=== PATIENT | female | born 1990 | race Caucasian/White ===

== ENCOUNTER 2017-01-13 08:25 | Inpatient (IN) ==
[~2017-01-13 08:25] MED LIST: Famotidine 20 MG/2 ML VIAL IVP PRN; Naloxone 0.4 MG/ML INJ IVP PRN; Ondansetron 4 MG/2 ML VIAL IVP PRN; Ringers Solution, Lactated 1,000 ML ONE
[2017-01-13] MEDS ORDERED: D5% in Lactated Ringers 1,000 ML IVC SCH (08:30)
--- NOTE | 2017-01-13 08:32 | OB/GYN History & Physical ---
Date of Encounter: 01/13/17 Time of Encounter: 08:29 Assessment and Plan (1) 38 weeks gestation of Current visit: Yes Status: Acute The patient has been receiving care and meeting milestones (2) Spontaneous onset of labor Current visit: Yes Status: Acute Anticipate vaginal delivery. Pain management as requested (3) Obesity complicating , childbirth, or puerperium, antepartum Current visit: Yes Status: Acute The patient has had normal glucose monitoring and reassuring ultrasounds (4) Anemia complicating Current visit: Yes Status: Acute The patient has been receiving iron since her second trimester Qualifiers: Trimester: unspecified trimester Qualified Code(s): O99.019 - Anemia complicating , unspecified trimester History of Present Illness Chief complaint: In Labor HPI: Ms. Murphy is a 26 year old female who is with an EDC of 01/21/17 by LMP and ultrasound who presents to labor and delivery with worsening contractions but denies vaginal bleeding or loss of fluid. She reports an active fetus. She has been monitored on labor and delivery and has change from 4 cm to 6 cm. Her contractions are spontaneous and currently every 5-6 minutes. Her blood type is A+, she is rubella immune, varicella immune and her group B strep status is negative. Her has been complicated by history of a spontaneous during first trimester, anemia and obesity. Past Med Surg Social Fam HX - Past Medical History Source: patient, old records reviewed Medical history: no medical history Psychiatric history: no psych history - Past Surgical History Surgical History: no surgical history - Social History Smoking Status: Never smoker Smokeless Tobacco Status: No Alcohol use: none Drug use: unknown - Family History Mother Living Status: Still Living Hx Family Cardiac Disorders: Yes (HTN) Obstetrical History - Pregnancies : 2 Para: 0 Ab's: 1 Medications and Allergies 3 Allergy/AdvReac Type Severity Reaction Status Date / Time No Known Allergies Allergy Verified 09/19/15 20:30 Review of System OB All systems PM: reviewed and no additional remarkable complaints except as stated - Cardiovascular Cardiovascular: pedal edema - Gastrointestinal Gastrointestinal: cramping - Muscloskeletal Musculoskeletal: back pain, muscle cramps Exam - Vital Signs Vital signs: Afebrile, vital signs stable - Constitutional Constitutional: well developed, well nourished, no acute distress, obese - HEENT HEENT: Normocephaly, Mucus Membranes Moist - Neck Neck exam: normal inspection, supple - Lungs Respiratory exam: CTAB - Cardiovascular Cardiovascular exam: RRR - Breasts Breast: bilateral: normal - Abdomen Abdomen: Present: bowel sounds normal, gravid, non tender - Extremities Extremities exam: pedal edema, warm Deep Tendon Reflex Grade: 3+ Normal But Brisk - Vulva Vulva: bilateral: normal - Vagina Vagina: Present: normal moisture - Cervix Dilation: 6 Effacement: 90 Station: +1 - Anus/Rectum Anus/Rectum: Present: normal perianal skin Results All other labs normal. - VTE Reasons for not Prescribing Prophylaxis: Treatment not Indicated - Low risk for VTE
[2017-01-13 08:55] LABS: Basophils % 0.2 %; Eosinophils % 0.1 %; Hematocrit 33.7 % (35.3-44.9); Hemoglobin 11.1 g/dL (11.5-15.4); Immature Granulocytes % 0.6 % (0-4); Lymphocytes # 2.1 K/mcL (0.6-4.6); Lymphocytes % 13.4 %; Mean Corpuscular HGB Conc 32.9 g/dL (31.6-35.5); Mean Corpuscular Hemoglobin 29.4 pg (28.0-33.3); Mean Corpuscular Volume 89.2 fL (83.0-100.0); Mean Platelet Volume 10.3 fL (9.4-12.4); Monocytes # 0.6 K/mcL (0.0-1.3); Monocytes % 4.1 %; Neutrophils # 12.5 K/mcL (1.6-8.9); Platelet Count 313 K/mcL (140-400); Red Blood Count 3.78 M/mcL (3.82-4.97); Red Cell Distribution Width 13.7 % (11.5-14.5); Segmented Neutrophils % 81.6 %
[2017-01-13] MEDS ORDERED: *HR* FentaNYL (PF) 100 MCG/2 ML VIAL EP ONE (09:29)
[2017-01-13] MEDS ORDERED: EPHEDrine 50 MG/ML VIAL IVP PRN (09:29)
[2017-01-13] MEDS ORDERED: Ringers Solution, Lactated 500 ML IVC ONE (09:29)
[2017-01-13] MEDS ORDERED: *HR* Ropivacaine/PF 0.2% 10 ML AMPUL EP ONE (09:29)
[2017-01-13] MEDS ORDERED: Epidural Premix (fent/bupiv) 110 ML EP SCH (09:30)
--- NOTE | 2017-01-13 09:39 | Anesthesia Evaluation PreOp ---
Date of Encounter: 01/13/17 Time of Encounter: 09:35 - Past History Planned Operation: ARCHIE Cardiac History: Denies any Significant Hx Pulmonary History: Denies Any Significant HX GLASS BEVELLER History: Denies Any Significant HX Other Medical History: Denies Any Significant HX Anesthesia History: No Prior Anesthetic Complications, Past Anesthesia (Finger Surgery) : Yes Alcohol Use: none Drug use: unknown Medications and Allergies 3 Allergy/AdvReac Type Severity Reaction Status Date / Time No Known Allergies Allergy Verified 09/19/15 20:30 - Meds/Allergy Pre-op Review Medications Reviewed: Yes Allergies Reviewed: Yes Beta Blockers on Current Med List: No Anesthesia Results - Labs 01/13/17 08:30 Anesthesia Exam Height: 1.63m Weight: 96.2kg NPO (# of Hours): >4hr Pain Scale: 6 Pain Scale Used: Numeric (1 - 10) - HEENT Pupil (Motor): Pupils equal Mallampati: II Teeth: Normal Oral Opening: Greater than 3 - GLASS BEVELLER LOC: Oriented GLASS BEVELLER Motor: Normal RUE, Normal LUE, Normal RLE, Normal LLE, Normal Face GLASS BEVELLER Sensory: Normal: RUE, LUE, RLE, LLE, Face - Cardiac Rhythm: Regular Murmur: None JVD: No Carotid Bruit: No - Pulmonary Breath Sounds: bilateral Clear Respiratory Effort: Symmetrical Anesthesia Assess/Plan ASA Score: 2 Modified [place] Scale for Level of Consciousness: Cooperative, oriented, and tranquil Anesthetic Plan: Regional Monitoring Plan: Standard Monitors Recovery Plan: Other
[2017-01-13] MEDS ORDERED: Ringers Solution, Lactated 1,000 ML ONE (09:40)
[2017-01-13] MEDS ORDERED: *HR* FentaNYL (PF) 100 MCG/2 ML VIAL ONE (09:42)
[2017-01-13] MEDS ORDERED: Epidural Premix (fent/bupiv) 110 ML EP ONE ×3 (09:42→22:44)
[2017-01-13] MEDS ORDERED: ROPIVACAINE HCL/PF 0.5% 30 ML VIAL ONE (09:42)
--- NOTE | 2017-01-13 10:08 | Anesthesia Procedures ---
Date of Encounter: 01/13/17 Time of Encounter: 09:45 Procedures: Anesthesia - Epidural/Spinal Patient ID/Chart reviewed: Yes Patient examined: Yes OB Eval: Gestational age: 38.6 OB Eval: : 2 OB Eval: Hx Para: 0 OB Eval: Dilated at (cm): 6 OB Eval: Contractions: Non-stressed pattern Consent Obtained: Yes Supplemental Oxygen: None/Room Air Site Prep: Aseptic Technique, Sterile prep and drape, 0.5% Chlorhexidine/Alcohol Patient position: upright Local Anesthetic: Lidocaine 1% Amount of Local Anesthetic used: 2.5 Touhy Needle Gauge: 18 Touhy Needle Depth (cm): 8 Catheter Depth at Skin (cm): 15 Test Dose (1.5% Lido + Epi): Volume given (mls): 5 Test Dose Result: Negative Loading Dose: Fentanyl (mcg): 100 Loading Dose: Other: Ropivacaine 0.5% 8mL Loading Dose Administered: Thru Catheter Infusion Med: 0.125% Bupivacaine w/ 2 mcg/ml Fentanyl Infusion Rate (mls/hr): 15 (Bolus 5mL q15min; Max 3/hr) Catheter Secured in Place: Tegaderm Interspace Used: L3-L4 Loss of Resistance (CAROLE): Yes Blood: No CSF: No Paresthesia: No Procedure: x1 attempt. Patient tolerated well. Vitals + FHT's: VSS and FHR stable throughout. See nursing documentation.
--- NOTE | 2017-01-13 12:52 | OB Labor Progress Note ---
Date of Encounter: 01/13/17 Time of Encounter: 12:50 Labor Progress Note - Subjective Subjective: The patient is comfortable after her epidural - Vital Signs Vital Signs: Afebrile, vital signs stable - Cervix Cervix: 7/90/+1 - Heart Tones Heart Tones: 120s, CAT 1 - [place]: Spontaneous Q5 to 7 minutes - Interventions Interventions: Term intrauterine with spontaneous labor. Epidural for pain management. Anticipate vaginal delivery - Plan Plan: Amniotomy with scant blood-tinged fluid seen. IUPC placed. No further fluid seen. Keep close observation, especially for meconium or fore bag
[2017-01-13] MEDS ORDERED: Oxytocin 20 units/ LR 1000 mL 20 UNIT/1,000 ML BAG IVC ONE (23:05)
--- NOTE | 2017-01-13 23:38 | OB/GYN Procedure Note ---
Delivery - Delivery Date: 01/13/17 Provider: Alesia Stringer Intrapartum events: meconium Delivery induction: none Delivery augmentation: rupture of membranes Delivery monitor: external FHT, external uterine, internal uterine Anesthesia: epidural Estimated Blood Loss: 100 - (s) A Infant Delivery Date: 01/13/17 Infant Delivery Time: 23:18 Presentation: vertex Position: KERRY Route of delivery: Gender: Female Viability: Viable Pounds: 8 Ounces: 4 at 1 minute: 8 at 5 mins: 9 Shoulder Dystocia: not encountered Specimens collected: cord blood Placenta: spontaneous, uterine exploration Cord: 3 umbilical vessels - Repair Episiotomy: none Laceration Description: Vaginal, Labial (Bilateral) - Complications Delivery complications: meconium Delivery comments: The patient was complete and pushing with epidural anesthesia with a spontaneous vaginal delivery in the KERRY position of a vigorous female infant weighing 8 lbs. 4oz. with Apgars of 8 at 1 minute and 9 at 5 minutes. was bulb suctioned on the perineum and then placed on the maternal abdomen and handed to the nursery care team. The cord was clamped and cut after pulsations ceased. Cord blood obtained. The placenta was delivered spontaneous and intact. The uterus was explored and there were no retained products of conception. Bilateral labial lacerations were not hemostatic and were repaired with 4-0 Monocryl in a running nonlocking fashion. Vaginal midline laceration was repaired with 3-0 Vicryl in a running locking fashion. Estimated blood loss 100 mL, complications none
[2017-01-13] MEDS ORDERED: *HR* HYDROcodone/Acet 5/325 mg TABLET PO PRN (23:40)
[2017-01-13] MEDS ORDERED: Rho Immune Globulin 1,500 UNIT SYRINGE IM PRN (23:40)
[2017-01-13] MEDS ORDERED: Ibuprofen 600 MG TABLET PO PRN (23:40)
[2017-01-13] MEDS ORDERED: Oxytocin 20 units/ LR 1000 mL 20 UNIT/1,000 ML BAG IVC SCH (23:45)
[2017-01-14 06:01] LABS: Basophils % 0.1 %; Eosinophils % 0.1 %; Hematocrit 31.9 % (35.3-44.9); Hemoglobin 10.6 g/dL (11.5-15.4); Immature Granulocytes % 0.8 % (0-4); Lymphocytes # 1.5 K/mcL (0.6-4.6); Lymphocytes % 8.3 %; Mean Corpuscular HGB Conc 33.2 g/dL (31.6-35.5); Mean Corpuscular Hemoglobin 29.7 pg (28.0-33.3); Mean Corpuscular Volume 89.4 fL (83.0-100.0); Mean Platelet Volume 10.3 fL (9.4-12.4); Monocytes # 0.7 K/mcL (0.0-1.3); Monocytes % 4.2 %; Platelet Count 244 K/mcL (140-400); Red Blood Count 3.57 M/mcL (3.82-4.97); Red Cell Distribution Width 13.7 % (11.5-14.5); Segmented Neutrophils % 86.5 %
[2017-01-14] MEDS ORDERED: Prenatal Vit/FA 1 EACH TABLET PO SCH (09:00)
--- NOTE | 2017-01-14 09:00 | OB/GYN Progress Note ---
Date of Encounter: 01/14/17 Time of Encounter: 08:58 - Assessment and Plan (1) Vaginal delivery Current Visit: Yes Status: Acute Continue routine management. Monitor right lower extremity neuro function. Anticipate discharge home tomorrow. Subjective - Subjective Principal diagnosis: Vaginal delivery Interval history: Patient doing well s/p vaginal delivery day 1. Lochia light and without clots. C/O tingling to right leg. Reflexes positive. Tolerating diet. Voiding without difficulty. VSS. without difficulty. Anticipate discharge home tomorrow. Patient reports: appetite normal, voiding normally, pain well controlled, ambulating normally : doing well, nursing well Objective - Latest Vital Signs Latest vital signs: Vital Signs Temp Pulse Resp BP Pulse Ox 01/14/17 07:45 98.8 F 72 16 96/60 01/14/17 04:35 98.7 F 88 16 99/59 97 01/14/17 03:35 98.7 F 78 14 108/59 97 01/14/17 02:15 98.4 F 72 16 116/72 97 Intake and Output 01/13/17 01/14/17 01/14/17 23:59 07:59 15:59 Intake Total 200 / 200 Output Total 950 / 950 1200 / 1200 Balance -750 / -750 -1200 / -1200 Intake: Oral 200 / 200 Output: Urine 950 / 950 1200 / 1200 Other: Weight 85.6 kg Patient Weight 01/14/17 23:59 Weight 85.6 kg - Exam Lungs: bilateral: normal Chest: Normal S1, Normal S2 Extremities: Present: normal Abdomen: Present: normal appearance, soft. Absent: gravid, tenderness Uterus: Present: normal, firm Uterus Position: At Umbilicus, Midline - Labs Labs: Laboratory Results - last 24 hr 01/14/17 05:51 WBC 17.4 H RBC 3.57 L Hgb 10.6 L Hct 31.9 L MCV 89.4 MCH 29.7 MCHC 33.2 RDW 13.7 Plt Count 244 MPV 10.3 Immature Gran % 0.8 Seg Neutrophils % 86.5 Lymphocytes % 8.3 Monocytes % 4.2 Eosinophils % 0.1 Basophils % 0.1 Neutrophils # 15.0 H Lymphocytes # 1.5 Monocytes # 0.7 Eosinophils # 0.0 Basophils # 0.0
--- NOTE | 2017-01-14 09:37 | Discharge Summary ---
Date of Encounter: 01/14/17 Time of Encounter: 09:35 - Discharge Diagnosis (1) Vaginal delivery Priority: Primary Status: Acute Comments: See SOAP note from today - Discharge Medications Prescriptions: Docusate [Colace] 100 mg PO BID PRN #15 PRN Reason: Constipation Ibuprofen [Motrin] 600 mg PO Q6H PRN #30 tab PRN Reason: Cramping Home Medications: Docusate [Colace] 100 mg PO BID PRN #15 01/14/17 [Rx] Ibuprofen [Motrin] 600 mg PO Q6H PRN #30 tab 01/14/17 [Rx] Vit/FA 1 each PO DAILY tab 01/14/17 [Rx] Allergies/Adverse Reactions: 3 Allergy/AdvReac Type Severity Reaction Status Date / Time No Known Allergies Allergy Verified 09/19/15 20:30 Data Procedures and tests throughout hospitalization: Laboratory Tests 01/13/17 01/14/17 08:30 05:51 WBC 15.3 H 17.4 H RBC 3.78 L 3.57 L Hgb 11.1 L 10.6 L Hct 33.7 L 31.9 L MCV 89.2 89.4 MCH 29.4 29.7 MCHC 32.9 33.2 RDW 13.7 13.7 Plt Count 313 244 MPV 10.3 10.3 Immature Gran % 0.6 0.8 Seg Neutrophils % 81.6 86.5 Lymphocytes % 13.4 8.3 Monocytes % 4.1 4.2 Eosinophils % 0.1 0.1 Basophils % 0.2 0.1 Neutrophils # 12.5 H 15.0 H Lymphocytes # 2.1 1.5 Monocytes # 0.6 0.7 Eosinophils # 0.0 0.0 Basophils # 0.0 0.0 Labs on day of discharge: Labs from last 24 hours 01/14/17 05:51 WBC 17.4 H RBC 3.57 L Hgb 10.6 L Hct 31.9 L MCV 89.4 MCH 29.7 MCHC 33.2 RDW 13.7 Plt Count 244 MPV 10.3 Immature Gran % 0.8 Seg Neutrophils % 86.5 Lymphocytes % 8.3 Monocytes % 4.2 Eosinophils % 0.1 Basophils % 0.1 Neutrophils # 15.0 H Lymphocytes # 1.5 Monocytes # 0.7 Eosinophils # 0.0 Basophils # 0.0 Date of admission: 01/13/17 08:25 Primary care physician: PCP NONE Consults: 01/13/17 23:40 Consult to Doctor Osteopathic [CONS] Routine Comment: Vaginal delivery, consult needed Discharging clinician: Zena Wilkes Anticipated date of discharge: 01/14/17 - Patient Status Disposition: Home, Self-Care Condition: Good Functional capacity at discharge: independent ambulation Overall status at discharge: patient is progressing back to baseline - Discharge Instructions Follow Up With: NONE,PCP [Primary Care Provider] - Alesia Stringer MD [Partnered Physician] - - Diet and Activity Activity: increase activity as tolerated Diet: regular diet Hospital Course Reason for admission: active labor Delivery: Episiotomy: none Laceration: vaginal side wall, other (periurethral) complications: none Discharge diagnosis: IUP at term delivered [place] baby: female Time Attestation: Total time spent providing and/or coordinating discharge services: Time Spent: Less than 30 minutes Exam - Constitutional Vitals: Temp Pulse Resp BP Pulse Ox 98.8 F 72 16 96/60 97 01/14/17 07:45 01/14/17 07:45 01/14/17 07:45 01/14/17 07:45 01/14/17 04:35 General appearance IM: cooperative, A&O X 3, pleasant - Respiratory Respiratory exam: Present: CTAB - Cardiovascular Cardiovascular exam IM: Present: RRR, +S1, +S2 - GI/Abdominal GI/Abdominal exam IM: normal bowel sounds, soft - Rectal Rectal exam: deferred - Uterine Tone: Firm Uterus Position: At Umbilicus, Midline - Neurological Exam Neurological exam: alert, oriented X3, reflexes normal
[2017-01-14] MEDS ORDERED: Lanolin 7 G OINT...G. TP PRN (14:39)
[2017-01-14 15:36] VITALS: BP 99/57
== END 2017-01-14 19:30 | disposition home or self-care (01) | DRG 775 ==
LOC: 1NENULAB → 1NENUOBS 01-14 01:31
PROVIDERS: ADMIT Advanced Practice Midwife; ATTEND Advanced Practice Midwife

== ENCOUNTER 2018-12-16 09:47 | Inpatient (IN) ==
[~2018-12-16 09:47] MED LIST changes: +Metoclopramide 10 MG/2 ML VIAL IVP PRN; -Ondansetron 4 MG/2 ML VIAL IVP PRN; -Ringers Solution, Lactated 1,000 ML ONE
[2018-12-16] MEDS ORDERED: *HR* Nalbuphine 10 MG/ML AMPUL IV PRN (09:51)
[2018-12-16] MEDS ORDERED: Oxytocin 20 units/ LR 1000 mL 20 UNIT/1,000 ML BAG IVC ONE ×2 (09:58→13:56)
[2018-12-16 10:18] LABS: Basophils % 0.2 %; Eosinophils % 0.2 %; Hematocrit 35.4 % (35.3-44.9); Hemoglobin 11.8 g/dL (11.5-15.4); Lymphocytes # 1.9 K/mcL (0.6-4.6); Lymphocytes % 14.7 %; Mean Corpuscular HGB Conc 33.3 g/dL (31.6-35.5); Mean Corpuscular Hemoglobin 29.9 pg (28.0-33.3); Mean Corpuscular Volume 89.6 fL (83.0-100.0); Mean Platelet Volume 10.2 fL (9.4-12.4); Monocytes # 0.5 K/mcL (0.0-1.3); Monocytes % 3.7 %; Neutrophils # 10.1 K/mcL (1.6-8.9); Platelet Count 312 K/mcL (140-400); Red Blood Count 3.95 M/mcL (3.82-4.97); Red Cell Distribution Width 13.5 % (11.5-14.5); Segmented Neutrophils % 80.2 %; White Blood Count 12.6 K/mcL (4.3-11.1)
[2018-12-16 10:39] LABS: Amphetamine Screen,Urine Negative ng/mL (Cutoff=1000); Barbiturate Screen,Urine Negative ng/mL (Cutoff=200); Benzodiazepines Screen,Urine Negative ng/mL (Cutoff=200); Cannabinoid Screen,Urine Negative ng/mL (Cutoff = 50); Cocaine Screen,Urine Negative ng/mL (Cutoff= 300); Opiate Screen,Urine Negative ng/mL (Cutoff=300); Phencyclidine Screen,Urine Negative ng/mL (Cutoff=25)
--- NOTE | 2018-12-16 10:50 | OB/GYN Procedure Note ---
Delivery - Delivery Date: 12/16/18 Provider: Jessee Ruiz Intrapartum events: none Delivery induction: none Delivery monitor: external FHT, external uterine Anesthesia: none Quantitated Blood Loss: 50 - (s) A Infant Delivery Date: 12/16/18 Infant Delivery Time: 10:35 Presentation: vertex Position: KERRY Route of delivery: Gender: Female Viability: Viable Pounds: 8 Ounces: 10 at 1 minute: 9 at 5 mins: 9 Shoulder Dystocia: not encountered Specimens collected: cord blood Placenta: spontaneous Cord: 3 umbilical vessels - Repair Episiotomy: none Laceration Description: None - Complications Delivery complications: none - Disposition Mom disposition: stable in LDR disposition: stable in LDR - Comments Comments: Patient's status post spontaneous vaginal delivery of a liveborn female infant from left occiput anterior presentation. With spontaneous delivered normal placenta with three-vessel cord. There was no shoulder dystocia and no retained placenta. There was no laceration. weight was found to be 8 lbs. 10 oz. with Apgars of 9 at 1 minute and 9 at 5 minutes. Estimated blood loss 50 mL. Mother and recovered in labor and delivery room.
--- NOTE | 2018-12-16 13:20 | OB/GYN History & Physical ---
Date of Encounter: 12/16/18 Time of Encounter: 13:17 Assessment and Plan (1) 38 weeks gestation of Current visit: No Status: Acute Radiographic 3 para 1 female presents labor and delivery in active labor admitted to labor and delivery perform amniotomy when able expect spontaneous vaginal delivery. History of Present Illness Chief complaint: Contractions HPI: Ms. Murphy is a 28 year old female that was repaired. At 38 weeks and 4 days gestation presents with frequent contractions since 4 AM. On arrival she denies bleeding or leakage fluid. Thanks this was not complicated. On arrival C78 centimeters dilated. Past Med Surg Social Fam HX - Past Medical History Source: patient, old records reviewed Medical history: no medical history Psychiatric history: no psych history - Past Surgical History Surgical History: no surgical history Additional surgical history: surgery on her left hand at 11 years old caught in a gear - Social History Smoking Status: Never smoker Smokeless Tobacco Status: No Alcohol use: none Drug use: none - Family History Mother History Unknown: Yes Adopted: No Family Member Ethnicity: Non- Living Status: Still Living Hx Family Cardiac Disorders: Yes (HTN) Hx Family Respiratory Disorders: No Hx Family Cancer: No Hx Family GI Disorders: No Hx Family Genitourinary Disorders: No Hx Family Endocrine Disorder: No Hx Family Musculoskeletal Disorders: No Hx Family Neuromuscular Disorders: No Hx Family Neurologic Disorders: No Hx Family HEENT Disorders: No Hx Family Autoimmune Disorders: No Hx Family Reproductive Disorders: No Hx Family Psychosocial Disorders: No Hx Family Medical Disorders: No Obstetrical History - Pregnancies : 3 Term: 1 Medications and Allergies Vit/FA 1 each PO DAILY tab 01/14/17 [Rx] Aspirin 81 mg PO DAILY 12/16/18 [History] Ferrous Sulfate 1 tab PO DAILY 12/16/18 [History] Folic Acid 1 tab PO DAILY 12/16/18 [History] Allergy/AdvReac Type Severity Reaction Status Date / Time No Known Allergies Allergy Verified 03/15/17 10:24 Exam - Constitutional Constitutional: well developed - HEENT HEENT: EOMI, PERRL - Neck Neck exam: full ROM - Lungs Respiratory exam: CTAB - Cardiovascular Cardiovascular exam: RRR - Abdomen Abdomen: Present: gravid - Extremities Extremities exam: full ROM Deep Tendon Reflex Grade: 2+ Normal - Cervix Dilation: 8 Effacement: 70 Station: -1 Results Result Diagrams: 12/16/18 09:35 Abnormal lab results WBC 12.6 K/mcL (4.3-11.1) H 12/16/18 09:35 Neutrophils # 10.1 K/mcL (1.6-8.9) H 12/16/18 09:35 All other labs normal. - VTE Reasons for not Prescribing Prophylaxis: Treatment not Indicated - Low risk for VTE
[2018-12-16] MEDS ORDERED: Measles/Mumps/Rubella Vacc 0.5 ML VIAL SQ PRN (13:56)
[2018-12-16] MEDS ORDERED: Acetaminophen 325 MG TABLET PO PRN (13:56)
[2018-12-16] MEDS ORDERED: Rho Immune Globulin 1,500 UNIT SYRINGE IM PRN (13:56)
[2018-12-16] MEDS ORDERED: Oxytocin 20 units/ LR 1000 mL 20 UNIT/1,000 ML BAG IVC SCH (13:56)
[2018-12-16] MEDS ORDERED: Ibuprofen 600 MG TABLET PO PRN (13:56)
[2018-12-16] MEDS ORDERED: Lanolin 7 G OINT...G. TP PRN (21:12)
[2018-12-17 07:46] LABS: Basophils % 0.2 %; Eosinophils # 0.1 K/mcL (0.0-0.6); Eosinophils % 0.6 %; Hematocrit 34.4 % (35.3-44.9); Hemoglobin 11.2 g/dL (11.5-15.4); Immature Granulocytes % 0.5 % (0-4); Lymphocytes # 2.5 K/mcL (0.6-4.6); Lymphocytes % 19.2 %; Mean Corpuscular HGB Conc 32.6 g/dL (31.6-35.5); Mean Corpuscular Hemoglobin 29.9 pg (28.0-33.3); Mean Corpuscular Volume 91.7 fL (83.0-100.0); Mean Platelet Volume 10.2 fL (9.4-12.4); Monocytes # 0.6 K/mcL (0.0-1.3); Monocytes % 4.8 %; Neutrophils # 9.6 K/mcL (1.6-8.9); Platelet Count 284 K/mcL (140-400); Red Blood Count 3.75 M/mcL (3.82-4.97); Red Cell Distribution Width 13.7 % (11.5-14.5); Segmented Neutrophils % 74.7 %; White Blood Count 12.8 K/mcL (4.3-11.1)
[2018-12-17 08:04] VITALS: BP 101/64
[2018-12-17] MEDS ORDERED: Prenatal Vit/FA 1 EACH TABLET PO SCH (09:00)
--- NOTE | 2018-12-17 11:32 | Discharge Summary ---
Date of Encounter: 12/17/18 Time of Encounter: 11:30 - Discharge Diagnosis (1) Breast feeding status of mother Priority: Secondary Status: Acute Comments: support prn (2) Vaginal delivery Priority: Primary Status: Acute Comments: Continue routine care discharge home today follow up with Dr. Stringer in 4-6 weeks - Discharge Medications Prescriptions: New Ibuprofen [Motrin] 600 mg PO Q6HR PRN tablet PRN Reason: Cramping Docusate [Colace] 100 mg PO BID capsule Lanolin [Lansinoh] 1 appl TP TID PRN oint...g. PRN Reason: Sore Nipples Continued Vit/FA 1 each PO DAILY tab Discontinued Ferrous Sulfate 1 tab PO DAILY Folic Acid 1 tab PO DAILY Aspirin 81 mg PO DAILY Home Medications: Vit/FA 1 each PO DAILY tab 01/14/17 [Rx] Docusate [Colace] 100 mg PO BID capsule 12/17/18 [Rx] Ibuprofen [Motrin] 600 mg PO Q6HR PRN tablet 12/17/18 [Rx] Lanolin [Lansinoh] 1 appl TP TID PRN oint...g. 12/17/18 [Rx] Allergies/Adverse Reactions: Allergy/AdvReac Type Severity Reaction Status Date / Time No Known Allergies Allergy Verified 03/15/17 10:24 Data Procedures and tests throughout hospitalization: Laboratory Tests 12/16/18 12/16/18 12/17/18 09:35 09:54 06:58 WBC 12.6 H 12.8 H RBC 3.95 3.75 L Hgb 11.8 11.2 L Hct 35.4 34.4 L MCV 89.6 91.7 MCH 29.9 29.9 MCHC 33.3 32.6 RDW 13.5 13.7 Plt Count 312 284 MPV 10.2 10.2 Immature Gran % 1.0 0.5 Seg Neutrophils % 80.2 74.7 Lymphocytes % 14.7 19.2 Monocytes % 3.7 4.8 Eosinophils % 0.2 0.6 Basophils % 0.2 0.2 Neutrophils # 10.1 H 9.6 H Lymphocytes # 1.9 2.5 Monocytes # 0.5 0.6 Eosinophils # 0.0 0.1 Basophils # 0.0 0.0 Urine Opiates Screen Negative Ur Buprenorphine Scrn Negative Ur Barbiturates Screen Negative Ur Phencyclidine Scrn Negative Ur Amphetamines Screen Negative U Benzodiazepines Scrn Negative Urine Cocaine Screen Negative U Marijuana (THC) Screen Negative Ur Drug Screen Interp See Below Labs on day of discharge: Labs from last 24 hours 12/17/18 06:58 WBC 12.8 H RBC 3.75 L Hgb 11.2 L Hct 34.4 L MCV 91.7 MCH 29.9 MCHC 32.6 RDW 13.7 Plt Count 284 MPV 10.2 Immature Gran % 0.5 Seg Neutrophils % 74.7 Lymphocytes % 19.2 Monocytes % 4.8 Eosinophils % 0.6 Basophils % 0.2 Neutrophils # 9.6 H Lymphocytes # 2.5 Monocytes # 0.6 Eosinophils # 0.1 Basophils # 0.0 Date of admission: 12/16/18 09:47 Primary care physician: Mary Parker MD Consults: 12/16/18 13:56 Consult to Wheel Setter [CONS] Routine Comment: Vaginal delivery, consult needed Discharging clinician: Ana Mccloud Anticipated date of discharge: 12/17/18 - Patient Status Disposition: Home, Self-Care Condition: Good Functional capacity at discharge: independent ambulation - Discharge Instructions Follow Up With: Mary Parker MD [Primary Care Provider] - Alesia Stringer MD [Partnered Physician] - - Diet and Activity Activity: increase activity as tolerated Diet: regular diet Hospital Course Reason for admission: active labor Delivery: Episiotomy: none Laceration: none Other procedures: none complications: none Discharge diagnosis: IUP at term delivered [place] baby: female (breast feeding) Time Attestation: Total time spent providing and/or coordinating discharge services: Time Spent: Less than 30 minutes Exam - Constitutional Vitals: Temp Pulse Resp BP Pulse Ox 98.1 F 74 14 101/64 96 12/17/18 08:03 12/17/18 08:03 12/17/18 08:03 12/17/18 08:03 12/17/18 08:03 General appearance IM: A&O X 3, pleasant, answers questions appropriately - Respiratory Respiratory exam: Present: CTAB - Cardiovascular Cardiovascular exam IM: Present: RRR, +S1, +S2 - GI/Abdominal GI/Abdominal exam IM: normal bowel sounds - Uterine Tone: Firm Uterus Position: At Umbilicus, Midline - Extremities Exam Extremities exam IM: Present: full ROM, normal inspection - Neurological Exam Neurological exam: alert, oriented X3, reflexes normal
== END 2018-12-17 14:00 | disposition home or self-care (01) | DRG 807 ==
LOC: 1NENULAB → 1NENUOBS 13:45
PROVIDERS: ADMIT Advanced Practice Midwife; ATTEND Advanced Practice Midwife